=== PATIENT | male | born 1995 | race African-American/Black ===

== ENCOUNTER 2020-09-02 06:35 | Emergency (ER) | payer OTHER ==
[~2020-09-02] VITALS: Ht 182.9 cm; Wt 74.8 kg
[2020-09-02 06:35] VITALS: BP_SYST 142
--- NOTE | 2020-09-02 06:35 | NUR ---
Patient was brought into the ER by paramedics with complaints of falling off a forklift. Patient stated he was at work any was thrown off a forklift landing on the upper back and back of his head. He denied any loss of consciousness, nausea or vomiting, but c/o visual acuity changes. Patient took no medications for his pain symptoms. He has no numbness and tingling to his arms or hands. He was brought in by paramedics in C-spine precautions. Patient reported constant 7/10 PS, moved all exremities w/o difficulty. ER MD to [facility]
--- NOTE | 2020-09-02 06:35 | NUR ---
Pt to bed 6 for evaluation
--- NOTE | 2020-09-02 06:48 | NUR ---
ER at bedside examining patient.
[2020-09-02] MEDS ORDERED: KETOROLAC TROMETHAMINE 60 MG/2 ML VIAL IM ONE (07:00)
--- NOTE | 2020-09-02 07:28 | NUR ---
Patient to Radiology with staff via [facility].
[2020-09-02 08:24] LABS: ACETAMINOPHEN < 1 ug/mL (1-30); ALCOHOL, BLOOD < 3 mg/dL (<10)
--- NOTE | 2020-09-02 08:31 | NUR ---
Patient to Radiology with staff via [facility], c-collar in place.
--- NOTE | 2020-09-02 08:43 | NUR ---
Patient to ER bed 6 from Radiology
--- NOTE | 2020-09-02 08:47 | NUR ---
ER Dr. Naik at bedside examining patient, removed c-collar.
[2020-09-02 09:58] LABS: BARBITURATE, URINE NEGATIVE (NEG <=200); BENZODIAZEPINE, URINE NEGATIVE (NEG <=150); CANNABINOID, URINE POSITIVE (NEG <=50); COCAINE, URINE NEGATIVE (NEG <=150); METHAMPHETAMINES SCREEN,URINE NEGATIVE (NEG <=500); OPIATE, URINE NEGATIVE (NEG <=100); PHENCYCLIDINE SCREEN,URINE NEGATIVE (NEG <=25); UR TRICYCLIC ANTIDEPRESSANTS NEGATIVE (NEG <=300); URINE AMPHETAMINE NEGATIVE (NEG <=500); URINE METHADONE NEGATIVE (NEG <=200); URINE OXYCODONE SCREEN NEGATIVE (NEG <=100); URINE PROPOXYPHENE SCREEN NEGATIVE (NEG <=300)
--- NOTE | 2020-09-02 11:50 | NUR ---
Patient to MRI with radiology staff.
--- NOTE | 2020-09-02 12:30 | NUR ---
Pt to ER Bed 6 from Radiology
[2020-09-02 13:33] VITALS: BP_SYST 138
--- NOTE | 2020-09-02 13:33 | NUR ---
Patient given written and verbal discharge instructions and verbalizes understanding. ER MD discussed with patient the results and treatment provided. Patient in stable condition. ID arm band removed. Rx of TRAMADOL, SOMA given. Patient educated on pain management and to follow up with PMD. Pain Scale 0/10. Opportunity for questions provided and answered. Medication side effect fact sheet provided.
== END 2020-09-02 13:33 | disposition home or self-care (01) ==
LOC: EDBD 06:35 → SED 06:35
DX: S16.1XXA Strain of muscle, fascia and tendon at neck level, initial encounter (principal); S29.012A Strain of muscle and tendon of back wall of thorax, initial encounter; S09.90XA Unspecified injury of head, initial encounter; D32.9 Benign neoplasm of meninges, unspecified; W17.89XA Other fall from one level to another, initial encounter; Y93.89 Activity, other specified; Y92.89 Other specified places as the place of occurrence of the external cause; Y99.8 Other external cause status
CPT/HCPCS: 36415; 70450; 70551; 71045; 72072; 72125; 80307; 96372; 99285; G0480; G0481; G0482; J1885; 76376